=== PATIENT | female | born 1980 | race Hispanic/Latino ===

== ENCOUNTER 2016-08-08 14:19 | Emergency (ER) | payer SELFPAY ==
[2016-08-08] MEDS ORDERED: methylPREDNISolone Acetate 40 mg/ml Vial ONE (14:45)
[2016-08-08] MEDS ORDERED: diphenhydrAMINE HCl 25 MG CAP ONE ×2 (14:45→15:00)
[2016-08-08] MEDS ORDERED: Dexamethasone 10 MG/ML VIAL ONE (14:45)
[2016-08-08] MEDS ORDERED: EPINEPHrine 1 MG/ML AMP ONE ×2 (14:45→15:33)
--- NOTE | 2016-08-08 16:22 | ERRECORD ---
[facility] EMERGENCY RECORD HPI RASH (14:43 SHAN) CHIEF COMPLAINT: Patient presents for evaluation of rash. HISTORIAN: History provided by patient, History provided by patient's family. TIME COURSE: are intermittent, HIVES OFF AND ON FOR 3 MONTHS. ROS (14:44 SHAN) CONSTITUTIONAL: Negative constitutional review of systems, Historian denies chills, denies fever. EYES: Negative eye review of systems. ENT: Negative ears, nose, throat review of systems. CARDIOVASCULAR: Negative cardiovascular review of systems, Historian denies chest pain, denies palpitations. RESPIRATORY: Negative respiratory review of systems, Historian denies cough, denies shortness of breath. GI: Negative gastrointestinal review of systems, Historian denies abdominal pain, denies constipation, denies diarrhea. MUSCULOSKELETAL: Negative musculoskeletal review of systems. SKIN: Negative skin review of systems. NEUROLOGIC: Negative neurologic review of systems. ENDOCRINE: Negative endocrine review of systems. HEMO/LYMPHATIC: Normal hematologic/lymphatic system review. PSYCHIATRIC: Negative psychiatric review of systems. NOTES: All other ROS is negative except as listed in HPI. PAST MEDICAL HISTORY MEDICAL HISTORY: No past medical history. (14:25 SFRE) FEMALE SURGICAL HISTORY: Patient has no surgical history. (14:25 SFRE) PSYCHIATRIC HISTORY: Notes: none. (14:25 SFRE) SOCIAL HISTORY: Patient drinks socially, every week, Patient denies drug use, Patient currently uses tobacco, smokes cigarettes, Occasional or some day smoker, patient has smoked for one year, Patient smokes 1/2 packs per day, 2 or 3 cigarettes a week. (14:25 SFRE) NOTES: I have reviewed and agree with the PMH/PSxH/FamHx/SocHx obtained by the nurse. (14:44 SHAN) KNOWN ALLERGIES No recorded allergies CURRENT MEDICATIONS (14:24 SFRE) None VITAL SIGNS (14:20 SFRE) VITAL SIGNS: BP: 114/75, Pulse: 103, Resp: 18, Temp: 98.0 (Tympanic), Pain: 7 (Burning), O2 sat: 99 on Room Air, Time: 08/08/2016 14:20. &a-1R&a+25V*p+0X*f3500P*c202B*c15G*c2P*p-0X&a-25V&a+1R Name: Erica Newton : 1980 F35 MedRec: [id number] AcctNum: [id number] Prepared: Michael Aug 08, 2016 16:45 by Interface Page 1 of 3 pMD [facility] EMERGENCY RECORD PHYSICAL EXAM (14:44 SHAN) CONSTITUTIONAL: Vital signs reviewed, Patient appears non toxic, Patient alert and oriented to person, place and time, Pt is in no apparent distress. HEAD: Head exam included findings of head atraumatic, normocephalic. EYES: Eye exam included findings of eyelids normal to inspection, Pupils equally round and reactive to light, Extraocular muscles intact. ENT: ENT exam normal, Nose exam normal, no nasal deformity, no bleeding from nares, Pharynx exam normal, Mouth exam normal, mucous membranes moist. NECK: Neck exam included findings of normal range of motion, Trachea midline. RESPIRATORY CHEST: Respiratory and chest exam normal, Breath sounds clear, No wheezing, No rales, Chest exam included findings of chest movement symmetrical, Chest expansion equal. CARDIOVASCULAR: Cardiovascular assessment normal, Cardiovascular exam included findings of heart rate regular rate and rhythm, Heart sounds normal. ABDOMEN FEMALE: Abdominal exam included findings of abdomen nontender, Bowel sounds normal, no mass, no pulsatile masses, no peritoneal signs. BACK: Back exam included findings of normal inspection, range of motion normal, no costovertebral angle tenderness. UPPER EXTREMITY: Upper extremity exam included findings of inspection normal, Range of motion normal. LOWER EXTREMITY: Lower extremity exam included findings of inspection normal, Range of motion normal. NEURO: Neuro exam findings include patient oriented to person, place and time, Speech normal, no focal motor deficits, no focal sensory deficits. SKIN: Skin exam included findings of skin warm, dry, and normal in color, Rash present, macular, URTICARIA DIFFUSELY. LYMPHATIC: Lymphatic exam normal. PSYCHIATRIC: Psychiatric exam included findings of patient oriented to person place and time, Normal affect. MEDICATION ADMINISTRATION SUMMARY Drug Name: epinephrine 0.3 mg/cc of 1;1000, Dose Ordered: * , Route: Intramuscular, Status: Given, Time: 15:37 08/08/2016, Drug Name: Benadryl Allergy, Dose Ordered: 2 tab(s), Route: Oral, Status: Given, Time: 15:02 08/08/2016, Drug Name: Depo-Medrol intramuscular, Dose Ordered: 120 mg, Route: Intramuscular, Status: Given, Time: 14:57 08/08/2016, Drug Name: Decadron Phosphate injection, Dose Ordered: 6 mg, Route: Intramuscular, Status: Given, Time: 14:57 08/08/2016, Drug Name: epinephrine 0.3 mg/cc of 1;1000, Dose Ordered: * , Route: &a-1R&a+25V*p+0X*u5770D*c202B*c15G*c2P*p-0X&a-25V&a+1R Name: Erica Newton : 1980 F35 MedRec: [id number] AcctNum: [id number] Prepared: Michael Aug 08, 2016 16:45 by Interface Page 2 of 3 pMD [facility] EMERGENCY RECORD Intramuscular, Status: Given, Time: 14:56 08/08/2016, Drug Name: Benadryl Allergy, Dose Ordered: 2 tab(s), Route: Oral, Status: Given, Time: 14:56 08/08/2016, Detailed record available in Medication Service section. DOCTOR NOTES (16:10 SHAN) TEXT: Much improved, will allow discharge with instructions. PROBLEM LIST No recorded problems DIAGNOSIS (16:11 SHAN) FINAL: PRIMARY: Urticaria. PRESCRIPTION Benadryl Allergy: TABLET : 25 mg : ORAL : Quantity: 2 Unit: tab(s) Route: ORAL Schedule: every 4 hours prn Dispense: 100 May substitute. Refills: No Refills . (16:11 SHAN) NOTES: No Refills. (16:11 SHAN) EpiPen: AUTO-INJECTOR (EA) : 0.3 mg/0.3 mL (1:1,000) : INJECTION : Quantity: 1 Unit: Route: INJECTION Schedule: See Notes Dispense: 1 Unit: units May substitute. Refills: No Refills . (16:15 SHAN) NOTES: use as directed only if needed for marked allergies No Refills. (16:15 SHAN) DISPOSITION PATIENT: Disposition Type: Discharge, Disposition: *Discharge Home. (16:11 SHAN) Patient left the department. (16:41 SFRE) Ching: OBDULIO=HERMES Ospina, Jacey GOLDSMITH=MD Karina, Ray &a-1R&a+25V*p+0X*u4478D*c202B*c15G*c2P*p-0X&a-25V&a+1R Name: Erica Newton Renetta : 1980 F35 MedRec: [id number] AcctNum: [id number] Prepared: Michael Aug 08, 2016 16:45 by Interface Page 3 of 3 pMD MTDD
--- NOTE | 2016-08-08 16:28 | PICIS ---
[facility] EMERGENCY RECORD TRIAGE (SunAug 08, 2016 14:23 SFRE) TRIAGE NOTES: RASH FOR MONTHS AND NOW FEELS LIKE SHE CAN'T BREATH. (SunAug 08, 2016 14:23 SFRE) PATIENT: AGE: 35, GENDER: female, : Sun1980, TIME OF GREET: SunAug 08, 2016 14:19, PREFERRED LANGUAGE: Citizen Of [place], ETHNICITY: or , ECODE BILLING MAP: [facility], SSN: [id number], Zip Code: [address], KG WEIGHT: 88.45, PHONE: , , , PERSON ID: [id number], PCP: NO PCP. (SunAug 08, 2016 14:23 SFRE) NAME: Erica Newton (14:29 SFRE) COMPLAINT: TROUBLE BREATHING,RASH. (SunAug 08, 2016 14:23 SFRE) ADMISSION: URGENCY: 3 Urgent, ADMISSION SOURCE: Home, TRANSPORT: Walk-in, BED: ED -03. (SunAug 08, 2016 14:23 SFRE) ASSESSMENT: Symptoms began 3 MONTHS. (14:25 SFRE) PAIN: Patient complains of pain described as, burning, itching, on a scale 0-10 patient rates pain as 7, Location [place], CHRISTIAN ARMS, CHRISTIAN LEGS, Pain is constant, No aggravating factors, No relieving factors. (14:25 SFRE) IMMUNIZATIONS: Flu vaccine not up to date. (14:25 SFRE) SIRS SCORING: Heart Rate 55-109 (0), Temp range 96.8-101.1 (0), respiratory rate 12-24 (0), Mental Status altered: no (0). (14:25 SFRE) TRIAGE SCREENING: Patient denies suicidal ideation, Patient denies presence of domestic violence. (14:25 SFRE) TREATMENTS IN PROGRESS: Saline Lock, Site: [facility], Gauge: 20, See EMS Record, Patient on youth nutritional monitor, Treatments given Prehospital: BLOOD GLUCOSE 120. (16:38 SFRE) PROVIDERS: TRIAGE NURSE: Jacey Ospina RN. (SunAug 08, 2016 14:23 SFRE) VITAL SIGNS: BP 114/75, Pulse 103, Resp 18, Temp 98.0, (Tympanic), Pain 7, (Burning), O2 Sat 99, on Room Air, Time 08/08/2016 14:20. (14:20 SFRE) PREVIOUS VISIT ALLERGIES: No Allergy Information Available. (SunAug 08, 2016 14:23 SFRE) No Allergy Information Available. (14:25 SFRE) KNOWN ALLERGIES No recorded allergies CURRENT MEDICATIONS (14:24 SFRE) None VITAL SIGNS (14:20 SFRE) VITAL SIGNS: BP: 114/75, Pulse: 103, Resp: 18, Temp: 98.0 (Tympanic), Pain: 7 (Burning), O2 sat: 99 on Room Air, Time: 08/08/2016 14:20. NURSING ASSESSMENT: ALLERGIC REACTION &a-1R&a+25V*p+0X*k0840R*c202B*c15G*c2P*p-0X&a-25V&a+1R Name: Erica Newton : 1980 F35 MedRec: [id number] AcctNum: [id number] Prepared: SunAug 08, 2016 16:50 by Interface Page 1 of 8 pMD [facility] EMERGENCY RECORD CONSTITUTIONAL: Patient arrives ambulatory, Gait steady, History obtained from patient, Patient appears, restless, uncomfortable, Patient cooperative, Patient alert, Oriented to person, place and time, Skin warm, Skin dry, Skin normal in color, Mucous membranes pink, Mucous membranes moist, Patient is well-groomed, Patient complains of RASH, SOB. (14:29 SFRE) ALLERGIC REACTION: Allergic reaction to unknown allergen, Past episodes of allergic reactions, to unknown allergen, REPORTS HAVING SAME RASH FOR APPROX 3 MONTHS, Allergic reaction symptoms include no difficulty breathing, Allergic reaction symptoms include no difficulty swallowing, Allergic reaction symptoms include hives, Allergic reaction symptoms include no localized swelling, Allergic reaction symptoms include rash, Symptoms relieved by benadryl, amount (mg) 25. (14:29 SFRE) RESPIRATORY: Breath sounds clear, Respiratory assessment findings include respiratory effort easy, Respirations regular, Conversing normally, Neck and chest exam findings include trachea midline, Chest expansion equal, Chest movement symmetrical, no signs of distress. (14:29 SFRE) SKIN: Skin assessment findings include skin warm, Skin dry, Skin normal in color, Inspection findings include rash, red, hives, itchy, without drainage, to GENERALIZED ALL OVER. (14:29 SFRE) NOTES: Notes: NO S/S OF DISTRESS OR SOB NOTED. (14:35 SFRE) SAFETY: Side rails up, Cart/Stretcher in lowest position, Family at bedside, Call light within reach, Hospital ID band on. (14:29 SFRE) NURSING PROCEDURE: DISCHARGE NOTE (16:20 SFRE) DISCHARGE: Patient discharged to home, ambulating without assistance, family driving, accompanied by other family member, Summary of Care printed/ provided, Patient requested and was provided an electronic copy of Discharge Instructions, Discharge instructions given to patient, Simple or moderate discharge teaching performed, by HERMES CLAYTON, F/U WITH PCP. RX DIRECTED. RETURN TO ED NEEDED FOR NEW/CONCERNING OR WORSENING SYMPTOMS., Prescriptions given and instructions on side effects given, Name of prescription(s) given: BENADRYL, Above person(s) verbalized understanding of discharge instructions and follow-up care. NURSING PROCEDURE: NURSE NOTES (15:28 SFRE) NURSES NOTES: Patient is improving, Patient in no apparent distress, Patient resting quietly. ORDER DETAILS Order Name: NEUROSURGEON ED, Status: Done, Time: 14:58 08/08/2016, User: OBDULIO, &a-1R&a+25V*p+0X*w6713O*c202B*c15G*c2P*p-0X&a-25V&a+1R Name: Erica Newton Renetta : 1980 F35 MedRec: [id number] AcctNum: [id number] Prepared: Michael Aug 08, 2016 16:50 by Interface Page 2 of 8 pMD [facility] EMERGENCY RECORD - Ordered for: MD Collins Stanley, - Entered by: MD Collins Stanley - Michael Aug 08, 2016 14:43, - Quantity: 1. MEDICATION ADMINISTRATION SUMMARY Drug Name: epinephrine 0.3 mg/cc of 1;1000, Dose Ordered: * , Route: Intramuscular, Status: Given, Time: 15:37 08/08/2016, Drug Name: Benadryl Allergy, Dose Ordered: 2 tab(s), Route: Oral, Status: Given, Time: 15:02 08/08/2016, Drug Name: Depo-Medrol intramuscular, Dose Ordered: 120 mg, Route: Intramuscular, Status: Given, Time: 14:57 08/08/2016, Drug Name: Decadron Phosphate injection, Dose Ordered: 6 mg, Route: Intramuscular, Status: Given, Time: 14:57 08/08/2016, Drug Name: epinephrine 0.3 mg/cc of 1;1000, Dose Ordered: * , Route: Intramuscular, Status: Given, Time: 14:56 08/08/2016, Drug Name: Benadryl Allergy, Dose Ordered: 2 tab(s), Route: Oral, Status: Given, Time: 14:56 08/08/2016, Detailed record available in Medication Service section. MEDICATION SERVICE Benadryl Allergy: Order: Benadryl Allergy (diphenhydramine HCl) - Dose: 2 tab(s) : Oral Schedule: Now Ordered by: Ray Collins MD Entered by: Ray Collins MD [facility] Aug 08, 2016 14:41 , Acknowledged by: Jacey Ospina RN Aug 08, 2016 14:43 Documented as given by: Jacey Ospina RN [facility] Aug 08, 2016 14:56 Patient, Medication, Dose, Route and Time verified prior to administration. Amount given: 2 TABS, Site: Medication administered P.O., Correct patient, time, route, dose and medication confirmed prior to administration, Patient advised of actions and side-effects prior to administration, Allergies confirmed and medications reviewed prior to administration, Patient in position of comfort, Side rails up, Cart in lowest position, Family at bedside. : Follow Up : Response assessment performed, No signs or symptoms of allergic reaction noted, Decreased symptoms. (15:24 SFRE) Benadryl Allergy: Order: Benadryl Allergy (diphenhydramine HCl) - Dose: 2 tab(s) : Oral Schedule: Now Ordered by: Rya Collins MD Entered by: Ray Collins MD Aug 08, 2016 14:45 , Acknowledged by: Jacey Ospina RN [facility] Aug 08, 2016 14:59 Documented as given by: Jacey Ospina RN [facility] Aug 08, 2016 15:02 Patient, Medication, Dose, Route and Time verified prior to administration. Amount given: 50MG, Site: Medication administered P.O., Correct patient, time, route, dose and medication confirmed prior to &a-1R&a+25V*p+0X*w5934D*c202B*c15G*c2P*p-0X&a-25V&a+1R Name: Erica Newton : 1980 F35 MedRec: [id number] AcctNum: [id number] Prepared: SunAug 08, 2016 16:50 by Interface Page 3 of 8 pMD [facility] EMERGENCY RECORD administration, Patient advised of actions and side-effects prior to administration, Allergies confirmed and medications reviewed prior to administration, Patient in position of comfort, Side rails up, Cart in lowest position, Family at bedside. : Follow Up : Response assessment performed, No signs or symptoms of allergic reaction noted. (15:24 SFRE) Decadron Phosphate injection: Order: Decadron Phosphate injection (dexamethasone sod phosphate) - Dose: 6 mg : Intramuscular Schedule: Now Ordered by: Ray Collins MD Entered by: Ray Collins MD Aug 08, 2016 14:38 , Acknowledged by: Jacey Ospina RN Aug 08, 2016 14:43 Documented as given by: Jacey Ospina RN Aug 08, 2016 14:57 Patient, Medication, Dose, Route and Time verified prior to administration. IM medication, Amount given: 6MG, Medication administered to right deltoid, Correct patient, time, route, dose and medication confirmed prior to administration, Patient advised of actions and side-effects prior to administration, Allergies confirmed and medications reviewed prior to administration, Patient in position of comfort, Side rails up, Cart in lowest position, Family at bedside. : Follow Up : Response assessment performed, No signs or symptoms of allergic reaction noted, Decreased rash, Response assessment performed. (15:27 SFRE) Depo-Medrol intramuscular: Order: Depo-Medrol intramuscular (methylprednisolone acetate) - Dose: 120 mg : Intramuscular Schedule: Now Ordered by: Ray Collins MD Entered by: Ray Collins MD [facility] Aug 08, 2016 14:38 , Acknowledged by: Jacey Ospina RN Aug 08, 2016 14:43 Documented as given by: Jacey Ospina RN [facility] Aug 08, 2016 14:57 Patient, Medication, Dose, Route and Time verified prior to administration. IM medication, Amount given: 120MG, Medication administered to right hip, Patient appears Awake and alert- acceptable, Correct patient, time, route, dose and medication confirmed prior to administration, Patient advised of actions and side-effects prior to administration, Allergies confirmed and medications reviewed prior to administration, Patient in position of comfort, Side rails up, Cart in lowest position, Family at bedside. : Follow Up : Response assessment performed, No signs or symptoms of allergic reaction noted, Decreased symptoms. (15:25 SFRE) epinephrine 0.3 mg/cc of 1;1000: Free Text order: epinephrine 0.3 mg/cc of 1;1000 : : Intramuscular Ordered by: Ray Collins MD Entered by: Ray Collins MD Aug 08, 2016 14:41 , Acknowledged by: Jacey Ospina RN Aug 08, 2016 14:43 Documented as given by: Jacey Ospina RN Aug 08, 2016 14:56 &a-1R&a+25V*p+0X*d1156M*c202B*c15G*c2P*p-0X&a-25V&a+1R Name: Erica Newton : 1980 F35 MedRec: [id number] AcctNum: [id number] Prepared: SunAug 08, 2016 16:50 by Interface Page 4 of 8 pMD [facility] EMERGENCY RECORD Patient, Medication, Dose, Route and Time verified prior to administration. IM medication, Amount given: 0.3MG, Medication administered to left deltoid, Patient appears Awake and alert- acceptable, Patient in position of comfort, Side rails up, Cart in lowest position, Family at bedside. : Follow Up : Response assessment performed, No signs or symptoms of allergic reaction noted, Decreased rash, Response assessment performed. (15:27 SFRE) epinephrine 0.3 mg/cc of 1;1000: Free Text order: epinephrine 0.3 mg/cc of 1;1000 : : Intramuscular Ordered by: Ray Collins MD Entered by: Ray Collins MD Aug 08, 2016 15:29 , Acknowledged by: Jacey Ospina RN SunAug 08, 2016 15:31 Documented as given by: Jacey Ospina RN SunAug 08, 2016 15:37 Patient, Medication, Dose, Route and Time verified prior to administration. IM medication, Amount given: 0.3mg, Medication administered to right deltoid, Patient appears Awake and alert- acceptable, Correct patient, time, route, dose and medication confirmed prior to administration, Patient advised of actions and side-effects prior to administration, Allergies confirmed and medications reviewed prior to administration, Patient in position of comfort, Side rails up, Cart in lowest position, Family at bedside. HPI RASH (14:43 SHAN) CHIEF COMPLAINT: Patient presents for evaluation of rash. HISTORIAN: History provided by patient, History provided by patient's family. TIME COURSE: are intermittent, HIVES OFF AND ON FOR 3 MONTHS. ROS (14:44 SHAN) CONSTITUTIONAL: Negative constitutional review of systems, Historian denies chills, denies fever. EYES: Negative eye review of systems. ENT: Negative ears, nose, throat review of systems. CARDIOVASCULAR: Negative cardiovascular review of systems, Historian denies chest pain, denies palpitations. RESPIRATORY: Negative respiratory review of systems, Historian denies cough, denies shortness of breath. GI: Negative gastrointestinal review of systems, Historian denies abdominal pain, denies constipation, denies diarrhea. MUSCULOSKELETAL: Negative musculoskeletal review of systems. SKIN: Negative skin review of systems. NEUROLOGIC: Negative neurologic review of systems. ENDOCRINE: Negative endocrine review of systems. HEMO/LYMPHATIC: Normal hematologic/lymphatic system review. PSYCHIATRIC: Negative psychiatric review of systems. NOTES: All other ROS is negative except as listed in HPI. &a-1R&a+25V*p+0X*k0304A*c202B*c15G*c2P*p-0X&a-25V&a+1R Name: Erica Newton : 1980 F35 MedRec: [id number] AcctNum: [id number] Prepared: SunAug 08, 2016 16:50 by Interface Page 5 of 8 pMD [facility] EMERGENCY RECORD PAST MEDICAL HISTORY MEDICAL HISTORY: No past medical history. (14:25 SFRE) FEMALE SURGICAL HISTORY: Patient has no surgical history. (14:25 SFRE) PSYCHIATRIC HISTORY: Notes: none. (14:25 SFRE) SOCIAL HISTORY: Patient drinks socially, every week, Patient denies drug use, Patient currently uses tobacco, smokes cigarettes, Occasional or some day smoker, patient has smoked for one year, Patient smokes 1/2 packs per day, 2 or 3 cigarettes a week. (14:25 SFRE) NOTES: I have reviewed and agree with the PMH/PSxH/FamHx/SocHx obtained by the nurse. (14:44 SHAN) PHYSICAL EXAM (14:44 SHAN) CONSTITUTIONAL: Vital signs reviewed, Patient appears non toxic, Patient alert and oriented to person, place and time, Pt is in no apparent distress. HEAD: Head exam included findings of head atraumatic, normocephalic. EYES: Eye exam included findings of eyelids normal to inspection, Pupils equally round and reactive to light, Extraocular muscles intact. ENT: ENT exam normal, Nose exam normal, no nasal deformity, no bleeding from nares, Pharynx exam normal, Mouth exam normal, mucous membranes moist. NECK: Neck exam included findings of normal range of motion, Trachea midline. RESPIRATORY CHEST: Respiratory and chest exam normal, Breath sounds clear, No wheezing, No rales, Chest exam included findings of chest movement symmetrical, Chest expansion equal. CARDIOVASCULAR: Cardiovascular assessment normal, Cardiovascular exam included findings of heart rate regular rate and rhythm, Heart sounds normal. ABDOMEN FEMALE: Abdominal exam included findings of abdomen nontender, Bowel sounds normal, no mass, no pulsatile masses, no peritoneal signs. BACK: Back exam included findings of normal inspection, range of motion normal, no costovertebral angle tenderness. UPPER EXTREMITY: Upper extremity exam included findings of inspection normal, Range of motion normal. LOWER EXTREMITY: Lower extremity exam included findings of inspection normal, Range of motion normal. NEURO: Neuro exam findings include patient oriented to person, place and time, Speech normal, no focal motor deficits, no focal sensory deficits. SKIN: Skin exam included findings of skin warm, dry, and normal in color, Rash present, macular, URTICARIA DIFFUSELY. LYMPHATIC: Lymphatic exam normal. &a-1R&a+25V*p+0X*n4280I*c202B*c15G*c2P*p-0X&a-25V&a+1R Name: Erica Newton : 1980 F35 MedRec: [id number] AcctNum: [id number] Prepared: Michael Aug 08, 2016 16:50 by Interface Page 6 of 8 pMD [facility] EMERGENCY RECORD PSYCHIATRIC: Psychiatric exam included findings of patient oriented to person place and time, Normal affect. EVENTS TRANSFER: Triage to Emergency Main ED -03. (14:23 SFRE) Removed from Emergency Main ED -03. (16:41 SFRE) DOCTOR NOTES (16:10 SHAN) TEXT: Much improved, will allow discharge with instructions. PROBLEM LIST No recorded problems DIAGNOSIS (16:11 SHAN) FINAL: PRIMARY: Urticaria. DISPOSITION PATIENT: Disposition Type: Discharge, Disposition: *Discharge Home. (16:11 SHAN) Patient left the department. (16:41 SFRE) INSTRUCTION (16:13 SHAN) DISCHARGE: URTICARIA. SPECIAL: 1. Benadryl 25 mg two to four up to four times a day only if needed 2. No iodine or shimp or shellfish; change detergents and sheets 3. followup with regular provider soon 4. consider allergy evaluation 5. return if condition worsens 6. epipen is only for severe reactions. PRESCRIPTION Benadryl Allergy: TABLET : 25 mg : ORAL : Quantity: 2 Unit: tab(s) Route: ORAL Schedule: every 4 hours prn Dispense: 100 May substitute. Refills: No Refills . (16:11 SHAN) NOTES: No Refills. (16:11 SHAN) EpiPen: AUTO-INJECTOR (EA) : 0.3 mg/0.3 mL (1:1,000) : INJECTION : Quantity: 1 Unit: Route: INJECTION Schedule: See Notes Dispense: 1 Unit: units May substitute. Refills: No Refills . (16:15 SHAN) NOTES: use as directed only if needed for marked allergies No Refills. (16:15 SHAN) IMAGING (16:31 SFRE) *DISCHARGE INSTRUCTIONS RECEIPT: Image captured from scanner. *SUPPLY CHARGE SHEET: Image captured from scanner. ADMIN &a-1R&a+25V*p+0X*f1646Z*c202B*c15G*c2P*p-0X&a-25V&a+1R Name: Erica Newton DOB: 1980 F35 MedRec: [id number] AcctNum: [id number] Prepared: Michael Aug 08, 2016 16:50 by Interface Page 7 of 8 pMD [facility] EMERGENCY RECORD DIGITAL SIGNATURE: MD Collins Stanley. (16:15 RUPAL) MD Collins Stanley. (16:28 RUPAL) HERMES Ospina, Jacey. (16:40 OBDULIO) Ching: OBDULIO=HERMES Ospina, Jacey GOLDSMITH=MD Collins Stanley &a-1R&a+25V*p+0X*g7804N*c202B*c15G*c2P*p-0X&a-25V&a+1R Name: Erica Newton : 1980 5 MedRec: [id number] AcctNum: [id number] Prepared: Michael Aug 08, 2016 16:50 by Interface Page 8 of 8 pMD MTDD
== END 2016-08-08 16:20 | disposition home or self-care (01) ==
LOC: MADERS 14:19
DX: L50.9 Urticaria, unspecified (principal); F17.210 Nicotine dependence, cigarettes, uncomplicated
CPT/HCPCS: 96372; J0171; J1030; J1100

== ENCOUNTER 2017-01-06 18:33 | Emergency (ER) | payer SELFPAY | END 2017-01-06 19:45 | disposition home or self-care (01) | LOC: MADERS 18:33 | DX: L50.9 Urticaria, unspecified (principal) | CPT/HCPCS: 96372; J1040 ==

== ENCOUNTER 2018-04-09 21:00 | Emergency (ER) | payer SELFPAY ==
[~2018-04-09 21:00] MED LIST: Donnatal Elixir 16.2 MG/5 ML UDCUP ONE
[2018-04-09 21:55] LABS: #Basophils 0.1 thou/uL (0.0-0.2); #Eosinphils 0.2 thou/uL (0.0-0.7); #Lymphocytes 2.7 thou/uL (1.20-3.40); #Monocytes 0.7 thou/uL (0.11-0.59); %Basophils 0.5 % (0.0-1.0); %Eosinophils 1.4 % (0.0-10.0); %Lymphocytes 25.1 % (21.0-51.0); %Monocytes 6.8 % (0.0-10.0); %Neutrophils 66.1 % (42.0-75.0); Hemoglobin 12.7 g/dL (12.0-16.0); Mean Corpuscular HGB CONC 33.5 g/dL (32.0-36.0); Mean Corpuscular Hemoglobin 32.7 pg (27.0-31.0); Mean Corpuscular Volume 97.8 fL (78.0-98.0); Mean Platelet Volume 7.1 fL (7.4-10.4); Platelet Count 233 thou/uL (130-400); RBC Distribution Width 11.8 % (11.5-14.5); Red Blood Cell (RBC) Count 3.87 mill/uL (4.20-5.40); White Blood Cell (WBC) Count 10.6 thou/uL (4.8-10.8)
[2018-04-09] MEDS ORDERED: Donnatal Elixir 16.2 MG/5 ML UDCUP ONE (22:09)
[2018-04-09] MEDS ORDERED: Mag-Al Plus 1200 MG/1200 MG/120 MG/30 ML UDCUP ONE (22:09)
[2018-04-09] MEDS ORDERED: Lidocaine Viscous Sol 2% 15 ml UD Cup ONE (22:09)
[2018-04-09 22:10] LABS: BHCG - Serum Negative (NEGATIVE); Pregs Control Background? CLEAR/WHITE (CLR/WHITE); Pregs Control Bar Appear? YES (CONTROL BAR)
[2018-04-09 22:16] LABS: ALT (SGPT) 11 U/L (8-55); AST (SGOT) 12 U/L (5-34); Albumin 3.9 g/dL (3.5-5.0); Alkaline Phosphatase 48 U/L (40-150); Anion Gap 11 mmol/L (10-20); BUN (Urea Nitrogen) 9 mg/dL (7.0-18.7); Bilirubin, Total 0.2 mg/dL (0.2-1.2); Calc. Creatinine Clearance 0 mL/min (70-130); Calcium 8.6 mg/dL (7.8-10.44); Carbon Dioxide 28 mmol/L (22-29); Chloride 106 mmol/L (98-107); Estimated GFR-MDRD 52; Globulin 2.1 g/dL (2.4-3.5); Glucose 90 mg/dL (70-105); Lipase 27 U/L (8-78); Potassium 4.2 mmol/L (3.5-5.1); Sodium 141 mmol/L (136-145)
== END 2018-04-09 23:05 | disposition home or self-care (01) ==
LOC: MADERS 21:00
DX: K29.70 Gastritis, unspecified, without bleeding (principal); F32.9 Major depressive disorder, single episode, unspecified; F41.9 Anxiety disorder, unspecified; F17.210 Nicotine dependence, cigarettes, uncomplicated
CPT/HCPCS: 36415; 80053; 83690; 84703; 85025; 93005

== ENCOUNTER 2019-09-15 13:12 | Emergency (ER) | payer SELFPAY | END 2019-09-15 13:30 | disposition home or self-care (01) | LOC: MADERS 13:12 | DX: N63.11 Unspecified lump in the right breast, upper outer quadrant (principal); F41.9 Anxiety disorder, unspecified; F32.9 Major depressive disorder, single episode, unspecified; F17.210 Nicotine dependence, cigarettes, uncomplicated | CPT/HCPCS: 99281 ==

== ENCOUNTER 2020-02-12 12:40 | Emergency (ER) | payer MEDICAID, OTHER ==
[2020-02-13 11:46] LABS: SARS-CoV-2 MS2 Positive; SARS-CoV-2 N Gene Negative; SARS-CoV-2 S Gene Negative; SARS-CoV-2 by NAA Not Detected (NotDetected); SARS-CoV-2 orf1ab Negative
== END 2020-02-12 13:50 | disposition home or self-care (01) ==
LOC: MADERS 12:40
DX: Z20.828 Contact with and (suspected) exposure to other viral communicable diseases (principal); F17.210 Nicotine dependence, cigarettes, uncomplicated; F41.9 Anxiety disorder, unspecified; F32.9 Major depressive disorder, single episode, unspecified
CPT/HCPCS: 87635; 99283; U0003

== ENCOUNTER 2020-05-31 15:28 | Emergency (ER) | payer MEDICAID, SELFPAY | END 2020-05-31 16:00 | disposition home or self-care (01) | LOC: MADERS 15:28 | DX: M79.81 Nontraumatic hematoma of soft tissue (principal); F17.200 Nicotine dependence, unspecified, uncomplicated | CPT/HCPCS: 99282 ==

== ENCOUNTER 2020-06-10 14:14 | Emergency (ER) | payer SELFPAY ==
[2020-06-10] MEDS ORDERED: Lidocaine 1% w/Epinephrine 1:100K 20 ML VIAL ONE (14:57)
[2020-06-10] MEDS ORDERED: Bacitracin 1 PK ONE (15:48)
== END 2020-06-10 16:09 | disposition home or self-care (01) ==
LOC: MADERS 14:14
DX: L02.811 Cutaneous abscess of head [any part, except face] (principal); F41.9 Anxiety disorder, unspecified; F32.9 Major depressive disorder, single episode, unspecified; F17.210 Nicotine dependence, cigarettes, uncomplicated; Z79.899 Other long term (current) drug therapy
CPT/HCPCS: 10060; 87070; 87077; 87205

== ENCOUNTER 2020-06-12 13:14 | Emergency (ER) | payer SELFPAY | END 2020-06-12 15:30 | disposition home or self-care (01) | LOC: MADERS 13:14 | DX: Z48.817 Encounter for surgical aftercare following surgery on the skin and subcutaneous tissue (principal); F41.9 Anxiety disorder, unspecified; F32.9 Major depressive disorder, single episode, unspecified; F17.210 Nicotine dependence, cigarettes, uncomplicated | CPT/HCPCS: 99282 ==

== ENCOUNTER 2021-03-11 14:58 | Emergency (ER) | payer MEDICAID, SELFPAY ==
[2021-03-12 20:57] LABS: SARS-CoV-2 PCR by NAA Not Detected (NotDetected)
== END 2021-03-11 15:55 | disposition home or self-care (01) ==
LOC: MADERS 14:58
DX: B34.9 Viral infection, unspecified (principal); F17.210 Nicotine dependence, cigarettes, uncomplicated; Z20.822 Contact with and (suspected) exposure to COVID-19
CPT/HCPCS: 99283; U0003; U0005

== ENCOUNTER 2021-11-14 16:00 | Emergency (ER) | payer MEDICAID, SELFPAY ==
[2021-11-14] MEDS ORDERED: Lidocaine 1% (PF) 30 ML VIAL ONE (16:37)
[2021-11-14] MEDS ORDERED: Sulfameth/Trimethoprim DS 800-160mg TAB ONE (17:04)
[2021-11-14] MEDS ORDERED: traMADol HCl 50 MG TAB ONE (17:04)
== END 2021-11-14 17:00 | disposition home or self-care (01) ==
LOC: MADERS 16:00
DX: L72.3 Sebaceous cyst (principal); L08.9 Local infection of the skin and subcutaneous tissue, unspecified
CPT/HCPCS: 10060; 87070; 87077; 87186; 87205; J2001